=== PATIENT | female | born 1975 | race Caucasian/White ===

== ENCOUNTER 2018-01-14 12:42 | Emergency (ER) | payer BC, MEDICAID ==
[~2018-01-14] VITALS: Ht 157.5 cm; Wt 73.0 kg
[2018-01-14] MEDS ORDERED: IBUPROFEN 600MG TABLET PO STA (13:13)
[2018-01-14 13:28] LABS: BASOPHILS % 0.4 % (0.0-2.0); EOSINOPHILS % 0.3 % (0.0-5.0); HEMATOCRIT. 39.6 % (36.0-48.0); HEMOGLOBIN. 12.7 g/dL (12.0-16.0); LYMPHOCYTES % 16.2 % (20.0-50.0); MEAN CORPUSCULAR HEMOGLOBIN 26.4 pg (28.0-32.0); MEAN CORPUSCULAR VOLUME 82.3 fL (81.0-99.0); MEAN PLATELET VOLUME 10.5 fl (7.4-10.4); MONOCYTES % 5.3 % (2.0-8.0); NEUTROPHILS % 77.8 % (40.0-76.0); PLATELET 187 x1000/uL (130-400); RED BLOOD CELL COUNT 4.81 mill/uL (4.2-5.4); RED CELL DISTRIBUTION WIDTH 14.9 % (11.6-14.6)
[2018-01-14 13:36] LABS: INR 1.1
[2018-01-14 13:40] LABS: CHLORIDE 104 mEq/L (98-107)
[2018-01-14 13:47] LABS: TROPONIN I < 0.02 ng/mL (0.00-0.04)
[2018-01-14 13:50] LABS: CLARITY URINE CLEAR (CLEAR); COLOR URINE YELLOW (YELLOW); KETONES URINE TRACE (NEGATIVE); LEUKOCYTE ESTERASE URINE NEGATIVE (NEGATIVE); NITRITE URINE NEGATIVE (NEGATIVE); OCCULT BLOOD URINE NEGATIVE (NEGATIVE); PH URINE 5.5 (4.5-8.0); PROTEIN URINE NEGATIVE (NEGATIVE); UROBILINOGEN URINE 0.2 E.U./dL (0.2-1.0)
[2018-01-14] MEDS ORDERED: KETOROLAC 30MG/ML VIAL IV ONE (15:00)
[2018-01-14 15:30] VITALS: BP 122/78
== END 2018-01-14 15:43 | disposition home or self-care (01) ==
LOC: ER 13:57
DX: R07.9 Chest pain, unspecified (principal)
CPT/HCPCS: 36415; 71045; 80053; 81003; 81025; 84484; 85025; 85610; 93005; 96374; 99285; J1885

== ENCOUNTER 2022-04-06 08:48 | Emergency (ER) | payer SELFPAY ==
[~2022-04-06] VITALS: Ht 165.1 cm; Wt 73.0 kg
[2022-04-06] MEDS: ACETAMINOPHEN 325MG TABLET PO ONE ×2 (09:20→09:25)
[2022-04-06] MEDS ORDERED: IBUPROFEN 100MG/5ML UDC PO ONE (09:45)
[2022-04-06] MEDS ORDERED: IBUPROFEN 100MG/5ML UDC PO NR (10:10)
[2022-04-06 10:20] VITALS: BP 123/90
== END 2022-04-06 11:31 | disposition home or self-care (01) ==
LOC: ER 10:04
DX: B34.9 Viral infection, unspecified (principal); R00.0 Tachycardia, unspecified
CPT/HCPCS: 93005; 99283

== ENCOUNTER 2025-02-23 12:32 | Emergency (ER) | payer OTHER ==
[~2025-02-23] VITALS: Ht 162.6 cm; Wt 81.6 kg
[2025-02-23 12:36] VITALS: O2SAT 100
[2025-02-23 12:41] VITALS: BP 128/75; TEMP 36.7; O2SAT 99
[2025-02-23] MEDS: DEXAMETHASONE 4MG/ML 1ML VIAL IM ONE (13:05)
[2025-02-23] MEDS: IPRATROPIUM BROMIDE (0.02%) 0.5MG/2.5ML NEB HHN STA (13:11)
[2025-02-23] MEDS: ALBUTEROL (0.083%) 2.5MG/3ML NEB HHN STA (13:11)
[2025-02-23 13:12] VITALS: PULSE 86; RESP 16
[2025-02-23] MEDS ORDERED: D-ME473S50 PO (13:54)
[2025-02-23] MEDS ORDERED: ALBU18HF2 IH (13:54)
== END 2025-02-23 14:01 | disposition home or self-care (01) ==
LOC: ER 12:32
DX: J40 Bronchitis, not specified as acute or chronic (principal)
CPT/HCPCS: 71045; 94640; 96372; 99283; J1100; Z7610; 94070; 94664; 98960